=== PATIENT | female | born 1995 | race Caucasian/White ===

== ENCOUNTER 2024-04-21 09:01 | Emergency (ER) | payer MEDICAID, SELFPAY ==
[2024-04-21 09:15] VITALS: BP 173/90; PULSE 117; RESP 20; TEMP 37.1; O2SAT 98; BMI 40.4
--- NOTE | 2024-04-21 09:29 | XR_ITS ---
Examination: Complete OB ultrasound, less than 14 weeks, transabdominal Date and time of exam: April 21, 2024 1017 hours INDICATIONS: Covid positive test one month ago, back and pelvic spasms today Technique: Obstetrical ultrasound images less than 14 weeks performed via transabdominal imaging Findings: Uterus 9.1 x 5.8 x 6.6 cm Intrauterine gestational sac corresponding to 6 weeks 4 days gestational age No pole, no cardiac activity Right ovary 4.0 x 3.4 x 3.5 cm arterial flow Left ovary 3.5 x 1.9 x 2.4 cm arterial flow IMPRESSION: Empty intrauterine gestational sac corresponding to 6 weeks 4 days gestational age Recommend transvaginal pelvic sonography follow-up to assess for pole and possible cardiac activity
--- NOTE | 2024-04-21 09:30 | PD.EDRME ---
Rapid Medical Screening Exam RME Arrival date/time: 04/21/24 09:01 This is a 29-year-old female who presents to the emergency department states she is currently unknown gestation time. States she is having back spasms radiating to her abdomen. I have greeted and performed a focused initial assessment of this patient. Initial appropriate labs ordered at this time. A comprehensive ED assessment and evaluation of the patient and analysis of all test and completion of medical decision making process will be conducted by additional ED provider. Chief Complaint: Back Pain/Injury Time Seen by Provider: 04/21/24 09:10 Vital signs: Vital Signs Temperature 98.7 F 04/21/24 09:15 Pulse Rate 117 H 04/21/24 09:15 Respiratory Rate 20 04/21/24 09:15 Blood Pressure 173/90 H 04/21/24 09:15 Pulse Oximetry (%) 98 04/21/24 09:15 Oxygen Delivery Method Room Air 04/21/24 09:15
[2024-04-21 09:49] LABS: Collection Type, Urine Clean Catch
[2024-04-21 09:54] LABS: Basophils % (Auto) 0 % (0-2.5); Eosinophils # (Auto) 0.2 Thou/mm3 (0.0-0.5); Eosinophils % (Auto) 2 % (0-10); Hematocrit 43.5 % (36.0-46.0); Hemoglobin 14.4 g/dL (12.0-16.0); Immature Granulocytes % (Auto) 1 % (0-0); Immature Granulocytes Auto 0.08 Thou/mm3 (0.00-0.00); Lymphocytes # (Auto) 3.3 Thou/mm3 (1.0-4.8); Lymphocytes % (Auto) 25 % (10-50); Mean Corpuscular HGB Conc 33.1 g/dl (31.0-37.0); Mean Corpuscular Hemoglobin 29.6 pg (25.0-35.0); Mean Corpuscular Volume 89 fL (80-100); Monocytes # (Auto) 0.9 Thou/mm3 (0.0-0.8); Monocytes % (Auto) 7 % (0-12); Neutrophils # (Auto) 8.5 Thou/mm3 (1.8-7.7); Neutrophils % (Auto) 65 % (37-80); Nucleated Red Blood Cell % 0 /100 WBC (0); Platelet Count 260 Thou/mm3 (140-440); Red Blood Count 4.87 Miln/mm3 (4.00-5.20)
[2024-04-21 09:58] LABS: Bilirubin,Urine Negative (Negative); Blood,Urine Negative (Negative); Clarity,Urine Clear (Clear/Hazy); Color,Urine Yellow (Lt Yel-Yel); Glucose, Urine Negative (Negative); Ketones,Urine Negative (Negative); Leukocyte Esterase,Urine Positive (Negative); Nitrite,Urine Negative (Negative); Protein,Urine Trace (Neg - Trace); RBC,Urine 4 /hpf (0-3); Specific Gravity,Urine 1.027 (1.001-1.035); Squamous Epithelial Cell,Urine 5 /hpf (0-5); Urobilinogen,Urine Negative mg/dL (0.0-1.0); WBC,Urine 4 /hpf (0-5)
--- NOTE | 2024-04-21 10:05 | PC.NURSE ---
U/S CALLED AND MADE AWARE PT IS HYDRATED.
[2024-04-21 10:09] LABS: Alanine Aminotransferase 42 U/L (10-49); Albumin, Serum 4.9 gm/dL (3.5-5.0); Albumin/Globulin Ratio 1.6 (1.2-2.2); Alkaline Phosphatase 72 U/L (46-116); Anion Gap 6 (7-16); Aspartate Amino Transferase 23 U/L (0-34); BUN/Creatinine Ratio 14 Ratio (12-20); Bilirubin,Total 0.4 mg/dL (0.3-1.2); Blood Urea Nitrogen 10 mg/dL (9-23); Calcium 9.3 mg/dL (8.3-10.6); Calcium (Corrected) 9.3 mg/dL (8.5-10.1); Carbon Dioxide 22.8 mMol/L (20.0-31.0); Chloride 106 mMol/L (98-107); Creatinine (Component) 0.7 mg/dL (0.6-1.3); Estimated Creatinine Clearance 179.6 mL/min (>60); Glucose 98 mg/dL (74-106); Osmolality,Calculated 269 (275-295); Potassium 4.1 mMol/L (3.4-5.1); Sodium 135 mMol/L (136-145); Total Protein 7.9 gm/dL (5.7-8.2); eGFR > 60 See Note
[2024-04-21 10:46] LABS: Beta HCG,Quantitative 33835 mIU/mL (<5.0)
[2024-04-21 10:49] VITALS: BP 102/66; PULSE 88; RESP 19; TEMP 36.7; O2SAT 97
[2024-04-21] MEDS: ACETAMINOPHEN 500 MG TABLET 1000 MG PO (10:56)
--- NOTE | 2024-04-21 11:45 | PD.EDBACK ---
ED Back Injury Pain RME/HPI General Chief Complaint: Back Pain/Injury Stated Complaint: BACK SPASMS - UKN WKS PREG Time Seen by Provider: 04/21/24 09:10 Arrival date/time: 04/21/24 09:01 RME / HPI RME / HPI Narrative: 04/21/24 09:01 This is a 29-year-old female who presents to the emergency department states she is currently unknown gestation time. States she is having back spasms radiating to her abdomen. I have greeted and performed a focused initial assessment of this patient. Initial appropriate labs ordered at this time. A comprehensive ED assessment and evaluation of the patient and analysis of all test and completion of medical decision making process will be conducted by additional ED provider. DR. DREW MAIN ED EVALUATION 29 year old female who is currently ~ 6 weeks presents to the ED for complaint of lower back pain beginning last night. Described as aching in sensation, without radiation, rating as moderate. No modifying or aggravating factors reported. Denies fevers, chills, chest pain, cough, shortness of breath, abdominal pain, n/v/d, urinary symptoms, or vaginal bleeding. Related Data Home Medications ?Medication ?Instructions ?Recorded ?Confirmed vit no.95-ferrous 1 tab PO QDAY 04/26/19 05/21/19 fumarate 28 mg-folic acid 800 mcg tablet () Allergies Allergy/AdvReac Type Severity Reaction Status Date / Time No Known Allergies Allergy Verified 02/03/23 18:24 Review of Systems Review of Systems Narrative Review of Systems: GEN: No fever, no chills, no weight loss EYES: No discharge, no visual changes, no pain HEENT: No ear pain, no congestion, no sore throat PULM: No shortness of breath, no cough, no congestion CV: No chest pain, no dyspnea on exertion, no palpitations GI: No nausea, no vomiting, no diarrhea, no pain, no constipation : No frequency, no urgency and no dysuria MUSC/SKEL No joint pain, +back pain SKIN: No rash PSYCH: No hallucinations, no depression HEME/LYMPH: No easy bleeding or bruising tendencies NEURO: No weakness, no headache Past Medical History Past Medical History NEUROLOGIC: Negative Neurological Disorders CARDIAC: Negative Cardiac Disorders or Congestive Heart Failure RESPIRATORY: Negative Chronic Obstructive Pulmonary Disease (COPD), Asthma or Pneumonia GASTROINTESTINAL: Positive Hemorrhoids (last ); Negative Gastrointestinal Disorders GENITOURINARY: Positive Genitourinary Disorders (bladder infection); Negative Renal Disease REPRODUCTIVE: Negative Pelvic Inflammatory Disease MUSCULOSKELETAL: Negative Musculoskeletal Disorders ENDOCRINE: Negative Endocrine Disorders, Diabetes Mellitus Type 1 or Diabetes Mellitus Type 2 HEMATOLOGIC: Negative Blood Disorders PSYCHO/SOCIAL: Positive Depression (not current); Negative Anxiety OTHER HISTORY: Negative Autoimmune Disease, Blood Transfusions, Blood Transfusion Reaction, Anesthesia Reactions, Organ Transplant, Chemotherapy, Radiation Therapy, Hyperbaric Therapy, MRSA, VRSA, Vancomycin-Resistant Enterococci or Chicken Pox Family History FAMILY HISTORY: Negative Family Psychiatric Problems, Family Respiratory Disorders, Family Cardiac Disorders, Family Gastrointestinal Problems, Family Cancer, Family Surgery or Family Anesthesia Reaction Surgical History SURGICAL: Negative Joint Replacement, Neurologic Surgery, Mastectomy, Section, Vasectomy or Organ Transplant Social History SMOKING STATUS: Never smoker ED Exam Narrative Physical exam: GENERAL APPEARANCE: Well hydrated, well nourished, in no acute distress. VITALS: All vitals were reviewed and the pulse ox is 97% on room air which is normal according to my interpretation. HEENT: Normocephalic, atramatic, EOMI, EACs are patent. There is no bulge or retraction. Throat without erythema or exudate. Moist oromucosa. No jaundice NECK: Supple, no JVD or bruits. CARDIOVASCULAR: Heart regular without S3-S4 or murmur. No rubs or gallops. LUNGS/CHEST: Clear to auscultation bilaterally. No rales, rhonchi, or wheezing. Normal inspection. ABDOMEN: Soft, nontender, with normal bowel sounds. No pulsatile masses. No rebound, rigidity, or guarding. No incarcerated hernia. Normal inspection and palpation. EXTREMITIES: Normal inspection and palpation. No edema, clubbing, or cyanosis. Intact CSM SKIN: Warm and dry without rashes. Normal inspection. MUSCULOSKELETAL: Normal inspection. No gross deformity, full ROM all extremities NEURO: Alert and oriented x3. Cranial nerves II through XII grossly intact. There are no other motor or sensory deficits noted. PSYCHIATRIC: Normal mood and affect. No psychosis Course Quality Measures none Orders Category Date Time Status US OB <= 14 weeks fetus Stat Exams 04/21/24 09:29 Completed ABO/RH Type Stat Lab 04/21/24 09:41 Completed Beta HCG,Quantitative Stat Lab 04/21/24 09:41 Completed CBC Stat Lab 04/21/24 09:41 Completed Comprehensive Metabolic Panel Stat Lab 04/21/24 09:41 Completed Urinalysis Stat Lab 04/21/24 09:40 Completed Urine Culture Stat Lab 04/21/24 09:40 Received Acetaminophen Tab [Tylenol ES Tab] Med 04/21/24 10:40 Discontinued 1,000 mg PO X1 ONE Vital Signs Vital signs: Vital Signs Temperature 98.7 F 04/21/24 09:15 Pulse Rate 117 H 04/21/24 09:15 Respiratory Rate 20 04/21/24 09:15 Blood Pressure 173/90 H 04/21/24 09:15 Pulse Oximetry (%) 98 04/21/24 09:15 Oxygen Delivery Method Room Air 04/21/24 09:15 Back Pain / Injury MDM Narrative MDM Narrative:: WBC count is 13,000. CMP is negative. test is roughly 34,000. Rh is positive. UA is negative. Ultrasound of the [facility] was read by Dr. Herbert Garza, radiologist on-call showing empty sac corresponding to 6 weeks 4 days. No pole. No cardiac activity. I am giving the patient copy of this ultrasound to follow-up with her [facility] Dr. Shin. The patient have no bleeding at this point. And she has no susan tenderness. And she has no abdominal tenderness. No surgical abdomen at this point. Patient data External records reviewed:: [facility] previous records (I reviewed [facility] on 09/24/2018) Clinical information provided by:: patient Social determinants that could affect healthcare access:: none Patient has the following chronic illnesses:: Previous pregnancies, How is presenting disease/condition affected by chronic disease/condition?: no chronic disease Evaluation data The following diagnostics were reviewed and interpreted by me:: lab results and radiology exam(s) Lab and/or radiology exams considered but not ordered:: None Interpretation Summary: Ordering Physician: Mariela Borges Date of Service: 04/21/24 Procedure(s): US OB <= 14 weeks fetus Accession Number(s): [id number] cc: Newton Granger MD; Herbert Garza MD; Mariela Borges~ Examination: Complete OB ultrasound, less than 14 weeks, transabdominal Date and time of exam: April 21, 2024 1017 hours INDICATIONS: Covid positive test one month ago, back and pelvic spasms today Technique: Obstetrical ultrasound images less than 14 weeks performed via transabdominal imaging Findings: Uterus 9.1 x 5.8 x 6.6 cm Intrauterine gestational sac corresponding to 6 weeks 4 days gestational age No pole, no cardiac activity Right ovary 4.0 x 3.4 x 3.5 cm arterial flow Left ovary 3.5 x 1.9 x 2.4 cm arterial flow IMPRESSION: Empty intrauterine gestational sac corresponding to 6 weeks 4 days gestational age Recommend transvaginal pelvic sonography follow-up to assess for pole and possible cardiac activity Dictated By: Herbert Garza MD Signed By: <Electronically signed by Herbert Garza MD in OV> 04/21/24 1050 Medications / Prescriptions Medications or Prescriptions considered but not ordered:: None Medication administrations:: Medication Administration History Discontinued Medications Acetaminophen (Acetaminophen 500 Mg Tablet) 1,000 mg PO X1 ONE Stop: 04/21/24 10:41 Last Admin: 04/21/24 10:56 Dose: 1,000 mg Documented By: GEMMA See above Consultations Consultation(s) initiated? (list below): No Diagnosis Most likely diagnosis given after review of the tests above:: Back pain during Possible demise Admission Indicated Admission indicated?: not indicated Admission Request Was there a request for admission?: No Disposition Plan Disposition Plan: Discharge Discharge Attestation Discharge Attestation: The patient and all family members were given an opportunity to ask questions and understood the discharge instructions. Discharge instructions specifically effects, indications for sooner follow up or return to the emergency department, and the expected course of current diagnosis. Patient condition: Stable Discharge Plan Plan Patient Disposition: HOME (Self Care) Disposition Comment: Stable for DC home Prescriptions/Referrals Prescriptions/Med Rec: No Action PNV cmb#95-ferrous fumarate-FA [] 28 mg iron- 800 mcg Tablet 1 tab PO QDAY Referrals: Newton Granger MD [Primary Care Provider] - In 1 week Problem List Clinical Impression: Back pain, Intrauterine Patient/Caregiver Discharge Instructions Education Materials: Back Pain During , Preg Back Pain Safety Additional Instructions: According to the ultrasound you are about 6 weeks and 4 days . However there is no fetus and there is no cardiac activity at this time seen. Tylenol only if needed for pain. See your doctor [facility] for recheck and further care in 1 week. You may need repeated ultrasound to investigate for possible demise. Return the nearest emergency department if any problem. Print Language: Prydeinig Stand Alone Forms: Eloisa Award Info., Patient Portal Info Letter
== END 2024-04-21 12:06 | disposition home or self-care (01) ==
PROVIDERS: Nurse Practitioner Primary Care; Emergency Provider Emergency Medicine; PCP Family Medicine
DX: O99.891 Other specified diseases and conditions complicating pregnancy (principal); M54.50 Low back pain, unspecified; Z3A.01 Less than 8 weeks gestation of pregnancy
CPT/HCPCS: 36415; 76801; 80053; 81001; 84702; 85025; 86900; 86901; 87086; 99284; A9270